=== PATIENT | male | born 1985 | race Asian ===

== ENCOUNTER 2023-11-21 09:36 | Emergency (ER) | payer OTHER ==
[~2023-11-21] VITALS: Ht 177.8 cm; Wt 74.0 kg
[2023-11-21 09:40] VITALS: TEMP 98.4
[2023-11-21] MEDS ORDERED: HYDROcodone/acetaminophen 10/325mg tab PO ONE (10:10)
[2023-11-21] MEDS ORDERED: ketorolac trometh 15mg/ml vial 15 MG/ML ML IM ONE (10:10)
[2023-11-21] MEDS ORDERED: CYCL-394 PO (10:20)
[2023-11-21 10:40] VITALS: BP 136/74; PULSE 74; RESP 16; O2SAT 98
== END 2023-11-21 10:41 | disposition home or self-care (01) ==
LOC: ER 09:36
DX: R07.89 Other chest pain (principal)
CPT/HCPCS: 99283